=== PATIENT | female | born 1940 | race Caucasian/White ===

== ENCOUNTER → 2022-02-07 | Outpatient (CLI) | payer MEDICARE, OTHER, SELFPAY ==
--- NOTE | 2022-02-07 07:35 | RAD_ITS ---
STUDY: X-RAY - ESOPHAGUS (BARIUM SWALLOW) WITH FLUOROSCOPY REASON FOR EXAM: Female, 81 years old. DYSPHAGIA TECHNIQUE: 22 view(s) of the esophagus were obtained following swallowing of barium. FLUOROSCOPY TIME (if supplied): (36 seconds) minutes/seconds COMPARISON: None. FINDINGS: There is no demonstrated esophageal foreign body. There is no demonstrated stricture or mucosal abnormality. Normal gastroesophageal junction, without a demonstrated hiatal hernia. The patient ingested a 12 mm tablet of barium without any difficulty. There is atherosclerotic calcification of the aortic arch with tortuosity of the descending aorta. Normal visualized pulmonary parenchyma. Normal visualized osseous structures of the thorax. RAD/Esophagus Dual Contrast IMPRESSION: Normal plain film x-ray examination (barium swallow) of the esophagus. Electronically Signed: Stalin Weston MD at 12:38 EDT ,
== END | disposition home or self-care (01) ==
LOC: RAD 07:27
PROVIDERS: Referring Provider Otolaryngology; Visit Provider Otolaryngology
DX: R13.13 Dysphagia, pharyngeal phase (principal)
CPT/HCPCS: 74221

== ENCOUNTER 2022-06-17 13:10 | Day surgery (SDC) | payer MEDICARE, OTHER, SELFPAY ==
[2022-06-17] MEDS: Lactated Ringers 1,000 ML 15 ML IV (13:25)
[2022-06-17 13:33] VITALS: BP 155/85; PULSE 73; RESP 16; TEMP 36.4; O2SAT 97; BMI 20.2
--- NOTE | 2022-06-17 15:00 | EGD_PTH ---
PATIENT: PARISA MCCORMACK LOC: EN U#:[id number] AGE/SX: 81/F ROOM: RE06/17/[address]: Dr. Mo Corey DO : 1940 BED: DIS: 06/17/2022 SPEC #: [id number] RECD: 06/18/22 06:42 STATUS: URMILA PRASADChin #: [id number] YASMEEN: 06/17/22 15:[address]: Mo Corey DEPT: SURGICAL PATHOLOGY RECD BY: Juan Osborne Tissues: Esophagus, NOS Procedures: Surgery Specimen Level IV HEADER OPERATION: EGD (MAC) with dilation PRE-OP DIAGNOSIS: Dysphagia TISSUE SUBMITTED: Distal esophagus MICROSCOPIC DIAGNOSIS Distal esophagus, biopsy: Fragments of gastroesophageal mucosa with chronic inflammation. Intestinal metaplasia (goblet cell metaplasia) not identified. See comment. MARIA M:cary 06/19/2022 COMMENT Alcian blue/PAS stain with matched control is used in the evaluation of the specimen. MICROSCOPIC DESCRIPTION Slides are reviewed. GROSS DESCRIPTION Received in fixative is one container labeled with the patient's name and designated distal esophagus. The specimen consists of two irregular fragments of light huddleston soft tissue that in aggregate measure 0.6 x 0.5 x 0.1 cm. The specimen is totally submitted in one cassette. / SJ:rg 06/18/2022 TC:3 CPT: 18766, 78913
--- NOTE | 2022-06-17 16:02 | PCM.HP.BLA ---
History and Physical Date of Admission: 06/17/22 PARISA MCCORMACK, is an 81 F who presents to the office today to establish with GI for dysphagia and acid reflux. Referred by ENT Dr Blair. She report very long hx of heartburn. Got worse a few years ago, has been on omeprazole 40 mg daily for a few years. Occas still gets heartburn at night, takes a second omeprazole then. Has to be careful to eat slowly and chew up her food carefully. Worries food will get stuck, especially when at a restaurant. No chest pain or abdominal pain. Occas nausea that she attributes to other meds, takes ondansetron prn. No hematemesis. Occas constipation but nothing bothersome. No diarrhea. No melena or hematochezia. Good appetite. No early satiety. No major weight changes. 02/07/22 Esophagram: normal ROS Const Constitutional: No fatigue ENT ENT: Positive for difficulty swallowing Gastro GI: Positive for heartburn and difficulty swallowing; No abdominal pain, belching, bloating, change in bowel habits, change in stool character, coffee ground emesis, constipation, cramping, diarrhea, feeling full early, excessive flatus, incontinent of stools, Vomiting blood/hematemesis, Blood in stool, loose stools, Black,tarry stools, nausea/dyspepsia, pain with swallowing, vomiting or other Musc Musculoskeletal: No joint pain Skin Skin: No yellowing of the eye or itchy eyes Psych Psychiatric: No anxiety and No depression Endo Endocrine: No fatigue Aller/Imm Allergy/Immunologic: No itchy eyes Phill/Lymp Hematologic/Lymphatic: No easy bleeding or easy bruising Exam Const General: cooperative and comfortable Nutritional Appearance: average body habitus Orientation: alert, awake and oriented x3 Eyes Sclera: sclerae normal Resp Effort & Inspection: normal respiratory effort GI Inspection: normal to inspection Palpation: soft, no hepatosplenomegaly, no hernias and nontender Quality Reporting Tobacco Screening (CMS 138) Smoking Status: Former smoker Assessment and Plan Assessment and Plan (1) Dysphagia: ?Status:?Chronic ?Plan: 81 yr old female with penitentiary heartburn, mostly controlled with omeprazole 40 mg daily, and with worsening dysphagia. Will get EGD to evaluate for esophagitis, stricture, Mendez's, hiatal hernia. F/u 2 wks later to review biopsy results. (2) GERD (gastroesophageal reflux disease): ?Status:?Chronic ?Plan: as above ? ? ? Medications: Discontinued amoxicillin-pot clavulanate 875-125 mg ?? Discontinued Reason:? Order Completed 1 TAB? PO BID 14 tabs 0RF ? ? I have examined the patient and the H&P has been reviewed. There are no clinical changes since date of exam.
[2022-06-17 16:20] VITALS: BP 142/78; BP 155/85; PULSE 79; RESP 16; TEMP 36.6; O2SAT 99
--- NOTE | 2022-06-17 16:21 | OP.CCLET_ITS ---
06/17/2022 Nelson Blair [address] [place] [address] Re : Upper GI endoscopy procedure for Madison Elam Dear Dr. Blair This procedure was performed on Friday, June 17, 2022. My impressions and recommendations are as follows: Impressions : - Abnormal esophageal motility, suspicious for esophageal spasm. - Moderate Schatzki ring. Dilated. - Non-severe reflux esophagitis. Biopsied. - Normal stomach. - Normal first portion of the duodenum. Recommendations : - Discharge patient to home. - Resume previous diet. - Continue present medications. - Await pathology results. My findings are described in the full procedure note, which is enclosed. If I can be of further assistance, please feel free to contact me at . Sincerely, Mo Corey, 06/17/2022 4:21:04 PM This report has been signed electronically.
--- NOTE | 2022-06-17 16:21 | OP.EGD_ITS ---
Patient Name: Madison Elam Procedure Date: 06/17/2022 3:57 PM Date of : 1940 Age: 81 Procedure: Upper GI endoscopy Indications: Dysphagia Providers: Mo Corey DO Medicines: Monitored Anesthesia Care Patient Profile: This is an 81 year old female. Refer to note in patient chart for documentation of history and physical. Patient has symptoms of chronic dysphagia. Complications: No immediate complications. Procedure: Pre-Anesthesia Assessment: - Prior to the procedure, a History and Physical was performed, and patient medications and allergies were reviewed. The risks and benefits of the procedure and the sedation options and risks were discussed with the patient. All questions were answered and informed consent was obtained. Patient identification and proposed procedure were verified by the physician. Mental Status Examination: normal. Prophylactic Antibiotics: The patient does not require prophylactic antibiotics. Prior Anticoagulants: The patient has taken no previous anticoagulant or antiplatelet agents. After reviewing the risks and benefits, the patient was deemed in satisfactory condition to undergo the procedure. The anesthesia plan was to use monitored anesthesia care (MAC). Immediately prior to administration of medications, the patient was re-assessed for adequacy to receive sedatives. The heart rate, respiratory rate, oxygen saturations, blood pressure, adequacy of pulmonary ventilation, and response to care were monitored throughout the procedure. The physical status of the patient was re-assessed after the procedure. After obtaining informed consent, the endoscope was passed under direct vision. Throughout the procedure, the patient's blood pressure, pulse, and oxygen saturations were monitored continuously. The gastroscope was introduced through the mouth, and advanced to the second part of duodenum. The upper GI endoscopy was accomplished without difficulty. The patient tolerated the procedure well. Scope In: 4:08:54 PM Scope Out: 4:15:40 PM Total Procedure Duration Time 0 hours 6 minutes 46 seconds Findings: Abnormal motility was noted in the middle third of the esophagus. The cricopharyngeus was normal. There is spasticity of the esophageal body. The distal esophagus/lower esophageal sphincter is patulous. Tertiary peristaltic waves are noted. A moderate Schatzki ring was found in the lower third of the esophagus. A guidewire was placed and the scope was withdrawn. Dilation was performed with a Savary dilator with no resistance at 51 Fr. The dilation site was examined and showed moderate improvement in luminal narrowing. Estimated blood loss was minimal. Non-severe esophagitis with no bleeding was found 35 to 36 cm from the incisors. Biopsies were taken with a cold forceps for histology. Verification of patient identification for the specimen was done. Estimated blood loss was minimal. The entire examined stomach was normal. The cardia and gastric fundus were normal on retroflexion. The first portion of the duodenum was normal. A non-bleeding diverticulum with a small opening and no stigmata of recent bleeding was found in the upper third of the esophagus. Impression: - Abnormal esophageal motility, suspicious for esophageal spasm. - Moderate Schatzki ring. Dilated. - Non-severe reflux esophagitis. Biopsied. - Normal stomach. - Normal first portion of the duodenum. Recommendation: - Discharge patient to home. - Resume previous diet. - Continue present medications. - Await pathology results. Procedure Code(s): --- Professional --- 32401, Esophagogastroduodenoscopy, flexible, transoral; with insertion of guide wire followed by passage of dilator(s) through esophagus over guide wire 62507, 59, Esophagogastroduodenoscopy, flexible, transoral; with biopsy, single or multiple CPT copyright 2017 [employer]. All rights reserved. The codes documented in this report are preliminary and upon e learning manager review may be revised to meet current compliance requirements. Mo Corey DO 06/17/2022 4:21:04 PM This report has been signed electronically. Number of Addenda: 0 Note Initiated On: 06/17/2022 3:57 PM
[2022-06-17 16:25] VITALS: BP 130/79; BP 155/85; PULSE 77; RESP 16; O2SAT 98
[2022-06-17 16:30] VITALS: BP 139/84; BP 155/85; PULSE 75; RESP 16; O2SAT 99
[2022-06-17 16:35] VITALS: BP 155/85; BP 157/83; PULSE 76; RESP 16; TEMP 36.6; O2SAT 97
[2022-06-17 17:09] VITALS: BP 155/85
== END 2022-06-17 17:10 | disposition home or self-care (01) ==
LOC: EN 13:15 → AC 13:17
PROVIDERS: Referring Provider Internal Medicine Gastroenterology; Visit Provider Internal Medicine Gastroenterology
PROC: 0DJ08ZZ Inspection of Upper Intestinal Tract, Via Natural or Artificial Opening Endoscopic (ICD-10-PCS; CPT 43235; principal; 2022-06-17 14:55)
DX: R13.10 Dysphagia, unspecified (principal); K21.00 Gastro-esophageal reflux disease with esophagitis, without bleeding; Z87.891 Personal history of nicotine dependence
CPT/HCPCS: 43248; 43239; 88305; J7120; C1769

== ENCOUNTER → 2025-01-26 | Outpatient (CLI) | payer MEDICARE, OTHER, SELFPAY ==
[2025-01-30 20:08] LABS: Pancreatic Elastase, Fecal > 800 (>200)
== END | disposition home or self-care (01) ==
LOC: LABSPEC 09:01
PROVIDERS: PCP Internal Medicine; Referring Provider Student in an Organized Health Care Education/Training Program; Visit Provider Student in an Organized Health Care Education/Training Program
DX: R19.5 Other fecal abnormalities (principal)
CPT/HCPCS: 82653; 87177; 87209; 87329

== ENCOUNTER → 2025-01-27 | Outpatient (CLI) | payer MEDICARE, OTHER, SELFPAY ==
[2025-02-01 10:09] LABS: Calprotectin, Stool 128 ug/g (0-120)
== END | disposition home or self-care (01) ==
PROVIDERS: PCP Internal Medicine; Referring Provider Student in an Organized Health Care Education/Training Program; Visit Provider Student in an Organized Health Care Education/Training Program
DX: R19.5 Other fecal abnormalities (principal); K58.9 Irritable bowel syndrome, unspecified
CPT/HCPCS: 83993